=== PATIENT | male | born 1990 | race Caucasian/White ===

== ENCOUNTER 2017-04-17 09:19 | Day surgery (SDC) | payer OTHER ==
[2017-04-17 09:35] VITALS: BMI 29.9
--- NOTE | 2017-04-17 09:38 | CP.SDSHP ---
Same Day Surgery H & P - History Proposed Procedure: colonoscopy - Allergies Allergies: Allergies No Known Allergies Allergy (Verified 04/17/17 09:35) - Date & Time Date: 04/17/17 Time: 09:37 Short Stay Discharge - Short Stay Discharge Admitting Diagnosis/Reason for Visit: FAMILY HISTORY OF MALIGNANT NEOPLASM OF DIGESTIVE Disposition: HOME/ ROUTINE
[2017-04-17] MEDS ORDERED: Propofol 10 mg/ml Inj (20 ML) ONE (10:00)
[2017-04-17] MEDS ORDERED: Lidocaine Hydrochloride 5 ML INJ ONE (10:00)
[2017-04-17] MEDS ORDERED: Midazolam 2 MG/2 ML VIAL ONE (10:06)
[2017-04-17 16:17] VITALS: TEMP 98.4; O2SAT 100
[2017-04-17 16:26] VITALS: BP 104/50; PULSE 60; RESP 18
== END 2017-04-17 11:40 | disposition home or self-care (01) ==
LOC: C.ENDO 09:19
PROVIDERS: ATTEND Colon & Rectal Surgery
DX: Z12.11 Encounter for screening for malignant neoplasm of colon (principal); Z80.0 Family history of malignant neoplasm of digestive organs; D12.5 Benign neoplasm of sigmoid colon
CPT/HCPCS: 45385; 88305; J2250; J2704